=== PATIENT | male | born 1970 | race Caucasian/White ===

== ENCOUNTER → 2017-01-09 | Outpatient (CLI) | payer BC | LOC: CIMAGING 14:54 | PROVIDERS: ATTEND Nurse Practitioner | DX: M25.552 Pain in left hip (principal); M25.551 Pain in right hip | CPT/HCPCS: 73521-PO ==

== ENCOUNTER → 2017-01-16 | Outpatient (CLI) | payer BC | LOC: CIMAGING 09:50 | PROVIDERS: ATTEND Orthopaedic Surgery | DX: S32.492A Other specified fracture of left acetabulum, initial encounter for closed fracture (principal) | CPT/HCPCS: 73700-PO ==

== ENCOUNTER → 2017-05-04 | Outpatient (CLI) | payer BC | LOC: FIMAGING 07:14 | PROVIDERS: ATTEND Orthopaedic Surgery | DX: R93.7 Abnormal findings on diagnostic imaging of other parts of musculoskeletal system (principal); S83.512D Sprain of anterior cruciate ligament of left knee, subsequent encounter; X58.XXXD Exposure to other specified factors, subsequent encounter ==

== ENCOUNTER → 2017-05-17 | Outpatient (CLI) | payer BC ==
[~2017-05-17] MED LIST: DEPO METHYLPREDNISOLONE 40 MG/ML SDV ONE; GADOBUTROL 10 ML VIAL IVP ONE; IOPAMIDOL (ISOVUE 370) 100 ML BTL IV ONE; LIDOCAINE 1% 300 MG/30 ML SDV ONE; ROPIVACAINE HCL 150 MG/30 ML INJ ONE
== END ==
LOC: FIMAGING 09:48
PROVIDERS: ATTEND Orthopaedic Surgery
PROC: 3E0U3HZ Introduction of Radioactive Substance into Joints, Percutaneous Approach (ICD-10-PCS; principal; 2017-05-17)
DX: S73.192A Other sprain of left hip, initial encounter (principal); S32.462A Displaced associated transverse-posterior fracture of left acetabulum, initial encounter for closed fracture; M16.12 Unilateral primary osteoarthritis, left hip; M67.852 Other specified disorders of synovium, left hip; M24.052 Loose body in left hip
CPT/HCPCS: A9585; J1030; J2795; Q9967

== ENCOUNTER → 2017-06-07 | Outpatient (CLI) | payer BC ==
[~2017-06-07] MED LIST changes: -DEPO METHYLPREDNISOLONE 40 MG/ML SDV ONE; +DEPO METHYLPREDNISOLONE 80 MG/ML SDV ONE; -GADOBUTROL 10 ML VIAL IVP ONE
== END ==
LOC: FIMAGING 10:32
PROVIDERS: ATTEND Orthopaedic Surgery
PROC: 3E0U33Z Introduction of Anti-inflammatory into Joints, Percutaneous Approach (ICD-10-PCS; principal; 2017-06-07)
PROC: 3E0U3BZ Introduction of Anesthetic Agent into Joints, Percutaneous Approach (ICD-10-PCS; principal; 2017-06-07)
DX: M16.0 Bilateral primary osteoarthritis of hip (principal)
CPT/HCPCS: J1040; J2795; Q9967